=== PATIENT | male | born 1990 | race Two or more races ===

== ENCOUNTER 2020-07-06 16:46 | Outpatient (REF) | payer OTHER, SELFPAY | END 2020-07-06 16:47 | disposition home or self-care (01) | LOC: HO.LAB 16:46 | PROVIDERS: Visit Provider Internal Medicine | DX: Z20.828 Contact with and (suspected) exposure to other viral communicable diseases (principal) | CPT/HCPCS: C9803; U0003 ==

== ENCOUNTER 2020-10-18 13:00 | Outpatient (REF) | payer OTHER, SELFPAY ==
[2020-10-18 13:48] LABS: COVID-19 Test Negative (Negative)
== END 2020-10-18 13:01 | disposition home or self-care (01) ==
LOC: HO.LAB 13:00
PROVIDERS: Visit Provider Internal Medicine
DX: Z20.822 Contact with and (suspected) exposure to COVID-19 (principal)
CPT/HCPCS: 36415; 87635; C9803

== ENCOUNTER 2021-10-24 13:05 | Outpatient (REF) | payer OTHER, SELFPAY ==
[2021-10-24 13:41] LABS: MANUAL DIFF FLAG NO
[2021-10-24 14:08] LABS: Prothrombin Time 11.5 SEC (9.9-13.0)
[2021-10-24 14:09] LABS: Basophils Absolute Auto 0.1 X10*3/uL (0.0-0.2); Basophils Percent Auto 0.7 % (0-2); Eosinophils Absolute Auto 0.3 X10*3/uL (0.0-0.4); Eosinophils Percent Auto 4.1 % (0-4); Hematocrit 44.4 % (42.0-52.0); Hemoglobin 15.3 g/dl (14.0-18.0); Imm Gran Abs Auto 0.04 X10*3/uL (0.00-0.03); Imm Gran Pct Auto 0.6 % (0.0-0.4); Lymphocytes Absolute Auto 2.2 X10*3/uL (1.2-4.9); Mean Corpuscular HGB Conc 34.5 g/dl (31.0-36.0); Mean Corpuscular Hemoglobin 29.8 pg (27.0-33.0); Mean Corpuscular Volume 86.4 fL (80.0-98.0); Mean Platelet Volume 10.8 fL (9.4-12.4); Monocytes Absolute Auto 0.6 X10*3/uL (0.1-1.2); Monocytes Percent Auto 8.7 % (2-11); Neutrophils Absolute Auto 3.8 x10*3/uL (2.0-8.3); Neutrophils Percent Auto 53.9 % (45-73); Platelet Count 298 X10*3/uL (160-400); Red Blood Count 5.14 X10*6/uL (4.60-5.80); Red Cell Distribution Width 12.7 % (11.0-16.0)
[2021-10-24 14:32] LABS: Alanine Aminotransferase 35 U/L (0-40); Albumin Level 4.5 g/dL (3.5-5.0); Alkaline Phosphatase 61 U/L (39-117); Anion Gap 10 (12-20); Aspartate Amino Transferase 26 U/L (5-37); Bilirubin Direct 0.2 mg/dL (0.0-0.5); Bilirubin Total 0.5 mg/dL (0.0-1.0); Blood Urea Nitrogen 12 mg/dL (9-16); Calcium 9.9 mg/dL (8.4-10.2); Carbon Dioxide 27 mmol/L (22-29); Chloride 105 mmol/L (96-108); Estimated Glomerular Filt Rate > 60; Glucose Random 80 mg/dL (60-115); Potassium 4.4 mmol/L (3.3-5.1); Sodium 138 mmol/L (135-145); Total Protein 8.2 g/dL (6.5-8.0)
[2021-10-24 14:51] LABS: Syphilis Screen Nonreactive (Nonreactive); Vitamin D 25-OH Total 14.2 ng/mL (>30)
[2021-10-24 15:25] LABS: Erythrocyte Sedimentation Rate 6 MM/HR (0-15)
[2021-10-25 08:34] LABS: HIV AB/AG Nonreactive (Nonreactive); HIV Num 1 0.07 S/CO (0.00-0.99)
[2021-10-26 05:07] LABS: Lyme Abs Screen <0.90 index
[2021-10-27 14:42] LABS: IgA 320 mg/dL (47-310); IgG 1533 mg/dL (600-1640); IgM 63 mg/dL (50-300)
== END 2021-10-24 13:06 | disposition home or self-care (01) ==
LOC: HO.LAB 13:05
PROVIDERS: PCP Internal Medicine; Visit Provider Psychiatry & Neurology Neurology
DX: Z11.4 Encounter for screening for human immunodeficiency virus [HIV] (principal); G37.9 Demyelinating disease of central nervous system, unspecified
CPT/HCPCS: 80048; 80076; 82306; 82784; 85025; 85610; 85652; 86334; 86617; 86618; 86780; 87389

== ENCOUNTER 2021-12-05 12:46 | Outpatient (REF) | payer OTHER, SELFPAY ==
--- NOTE | ~2021-12-05 | MR_ITS ---
EXAMINATION: MR CERVICAL SPINE WITHOUT AND WITH CONTRAST MR THORACIC SPINE WITHOUT AND WITH CONTRAST CLINICAL INFORMATION: Left leg pain. Cramps from hip to toes. COMPARISON: Brain MRI report dated 06/25/2021. TECHNIQUE: Multiplanar, multisequential imaging of the cervical and thoracic spine was performed before and after the intravenous administration of 10 mL of Gadavist. Slightly limited study with motion artifacts. FINDINGS: CERVICAL SPINE: Vertebral Bodies And Paraspinal Soft Tissues: The marrow signal is homogeneous and the discs are fairly well-hydrated. There is a mild reversal of the normal cervical lordosis. No abnormal enhancement is seen. The paraspinal soft tissues appear normal. The vertebral artery flow-voids are maintained. The imaged lung apices are grossly clear. Cervicomedullary Junction And Visualized Posterior Fossa: The craniovertebral junction and imaged portions of the brain demonstrate no acute abnormality. There is a small 4 mm focus of T2 hyperintense signal change in the left lateral aspect of the cord at the C5 level without enhancement, only visible on series 6, image 7/14 of the STIR acquisition. Spinal Levels: There is no significant disc pathology, central canal stenosis, or foraminal narrowing. No focal disc protrusion is seen. The facet joints are normal. THORACIC SPINE: The marrow signal is within normal limits. There are no compression fractures or subluxations. No abnormal enhancement is visible on postcontrast imaging. No cord signal abnormality or syrinx is seen. There is a very small right paracentral disc protrusion at the T2-T3 level. Small disc protrusion also visible to the right of midline at the T3-T4 level. There is a very small left paracentral disc protrusion at the T6-T7 level. Moderate loss of disc height evident at the T9-T10 level. The central canal and neural foramina are otherwise patent. The imaged portions of the lungs are grossly clear. The paraspinal soft tissues are unremarkable. MR/MR cervical spine wo/w con IMPRESSION: CERVICAL SPINE: Subcentimeter focus of nonenhancing signal in the left lateral aspect of the cord at the C5 level which is nonspecific but may reflect a small demyelinating lesion. Mild reversal of the normal cervical lordosis. Otherwise, relatively normal imaging of the cervical spine. THORACIC SPINE: No cord signal abnormality or pathologic enhancement. Small disc protrusions at the T2-T3, T3-T4, and T6-T7 levels. Moderate disc space narrowing at the T9-T10 level.
== END 2021-12-05 12:47 | disposition home or self-care (01) ==
LOC: HO.MRI 12:46
PROVIDERS: Visit Provider Psychiatry & Neurology Neurology
DX: G37.9 Demyelinating disease of central nervous system, unspecified (principal); G36.0 Neuromyelitis optica [Devic]
CPT/HCPCS: 72156; 72157; A9585

== ENCOUNTER 2021-12-25 09:01 | Outpatient (REF) | payer OTHER, SELFPAY | END 2021-12-25 09:02 | disposition home or self-care (01) | LOC: HO.MDS 09:01 | PROVIDERS: Visit Provider Psychiatry & Neurology Neurology | DX: G37.9 Demyelinating disease of central nervous system, unspecified (principal); G35 Multiple sclerosis | CPT/HCPCS: 96365; J2930 ==

== ENCOUNTER 2021-12-26 12:54 | Outpatient (REF) | payer OTHER, SELFPAY | END 2021-12-26 12:55 | disposition home or self-care (01) | LOC: HO.MDS 12:54 | PROVIDERS: Visit Provider Psychiatry & Neurology Neurology | DX: G37.9 Demyelinating disease of central nervous system, unspecified (principal); G35 Multiple sclerosis | CPT/HCPCS: 96365 ==

== ENCOUNTER 2021-12-27 13:06 | Outpatient (REF) | payer OTHER, SELFPAY | END 2021-12-27 13:07 | disposition home or self-care (01) | LOC: HO.MDS 13:06 | PROVIDERS: Visit Provider Psychiatry & Neurology Neurology | DX: G37.9 Demyelinating disease of central nervous system, unspecified (principal); G35 Multiple sclerosis | CPT/HCPCS: 96365; J2930 ==

== ENCOUNTER 2022-03-12 09:51 | Day surgery (SDC) | payer OTHER, SELFPAY ==
--- NOTE | ~2022-03-12 | FL_ITS ---
EXAMINATION: XR LUMBAR PUNCTURE CLINICAL INFORMATION: Demyelinating disease of the brain. Left leg pain COMPARISON: None TECHNIQUE: Following explanation of the fluoroscopy-guided lumbar puncture procedure, benefits and risks, a written consent was obtained. Patient was placed prone on the fluoroscopy table and the low back area was cleaned and draped in usual sterile manner and 1% lidocaine was injected at the puncture site overlying the L4-L5 disc level. A 22-gauge spinal needle was advanced from the skin intrathecally at the L4-L5 disc level. Patient was placed in left lateral decubitus, a stylet was removed and opening pressure was obtained. Subsequently CSF was collected in 4 test tubes. Postprocedure, a stylet was reintroduced and needle withdrawn. Complete hemostasis achieved at the puncture site. Patient tolerated the procedure extremely well. FINDINGS: On several images obtained of lumbar spine there is maintained lumbar lordosis. The vertebral heights, alignment and disc heights are normal. No visible acute fracture, dislocation or subluxation seen. Opening CSF pressure measured 14 cm of water. Approximately 9.5 mL of clear CSF fluid was collected in 4 test tubes and sent to lab as per referring physician's orders. FLUOROSCOPY TIME: 0.7 minutes DOSE AREA PRODUCT: 11.218 uGy-m2 (microgray-meter squared) FL/FL guided lumbar puncture LP IMPRESSION: Successful fluoroscopy-guided lumbar puncture performed as described above without immediate complications.
[2022-03-12 10:16] LABS: MANUAL DIFF FLAG NO
[2022-03-12 10:18] LABS: Basophils Percent Auto 0.5 % (0-2); Eosinophils Absolute Auto 0.3 X10*3/uL (0.0-0.4); Eosinophils Percent Auto 3.9 % (0-4); Hematocrit 44.7 % (42.0-52.0); Hemoglobin 14.9 g/dl (14.0-18.0); Imm Gran Abs Auto 0.06 X10*3/uL (0.00-0.03); Imm Gran Pct Auto 0.8 % (0.0-0.4); Lymphocytes Absolute Auto 2.2 X10*3/uL (1.2-4.9); Lymphocytes Percent Auto 29.1 % (20-40); Mean Corpuscular HGB Conc 33.3 g/dl (31.0-36.0); Mean Corpuscular Hemoglobin 29.2 pg (27.0-33.0); Mean Corpuscular Volume 87.6 fL (80.0-98.0); Mean Platelet Volume 10.3 fL (9.4-12.4); Monocytes Absolute Auto 0.6 X10*3/uL (0.1-1.2); Monocytes Percent Auto 7.6 % (2-11); Neutrophils Absolute Auto 4.5 x10*3/uL (2.0-8.3); Neutrophils Percent Auto 58.1 % (45-73); Platelet Count 276 X10*3/uL (160-400); Red Cell Distribution Width 13.1 % (11.0-16.0); White Blood Count 7.7 X10*3/uL (4.8-10.8)
[2022-03-12 10:23] VITALS: BMI 30.2
[2022-03-12 10:32] LABS: Partial Thromboplastin Time 35.3 SEC (26.0-36.4)
[2022-03-12 12:00] VITALS: BP 117/62; PULSE 56; RESP 16; TEMP 36.6; O2SAT 96
[2022-03-12 12:30] VITALS: BP 118/68; PULSE 59; RESP 18; O2SAT 97
[2022-03-12 12:44] LABS: CSF Appearance Clear, Colorless; CSF Tube # 1
[2022-03-12 12:54] LABS: Glucose CSF 60 mg/dL; Total Protein CSF 31.6 mg/dL (15-45)
[2022-03-12 13:00] VITALS: BP 128/53; PULSE 61; RESP 18; O2SAT 97
[2022-03-12 13:11] LABS: Appearance CSF CLEAR; CSF Tube # 4; Color CSF COLORLESS; Red Blood Cell CSF 18 MM*3; White Blood Cell CSF 4 MM*3
[2022-03-12 13:24] LABS: CSF Monos 10 %; Lymphocytes CSF 90 %
[2022-03-12 13:30] VITALS: BP 117/57; PULSE 74; RESP 18; O2SAT 98
[2022-03-12 14:30] VITALS: BP 122/56; PULSE 84; RESP 18; TEMP 36.8; O2SAT 98
[2022-03-13 06:40] LABS: Oligoclonal Serum Yes
[2022-03-16 11:07] LABS: Albumin 4.6 g/dL (3.5-5.2); Albumin, CSF 20.2 mg/dL (8.0-42.0); IgG 1520 mg/dL (600-1640); IgG Synthesis Rate -2.2 mg/24 h (-9.9-3.3); IgG, CSF 3.7 mg/dL (0.8-7.7)
== END 2022-03-12 14:42 | disposition home or self-care (01) ==
PROVIDERS: Radiology Diagnostic Radiology; PCP Internal Medicine; Visit Provider Psychiatry & Neurology Neurology
PROC: 009U3ZZ Drainage of Spinal Canal, Percutaneous Approach (ICD-10-PCS; CPT 62270; principal; 2022-03-12 11:00)
DX: G37.9 Demyelinating disease of central nervous system, unspecified (principal); M79.605 Pain in left leg; G36.0 Neuromyelitis optica [Devic]; G40.909 Epilepsy, unspecified, not intractable, without status epilepticus; F91.9 Conduct disorder, unspecified; F90.9 Attention-deficit hyperactivity disorder, unspecified type; F31.9 Bipolar disorder, unspecified; F41.9 Anxiety disorder, unspecified; F14.10 Cocaine abuse, uncomplicated; F10.10 Alcohol abuse, uncomplicated; Z79.899 Other long term (current) drug therapy
CPT/HCPCS: 36415; 62328; 82042; 82945; 83916; 84157; 85025; 85610; 85730; 87015; 87070; 87205; 89051

== ENCOUNTER 2022-05-12 22:38 | Emergency (ER) | payer OTHER, SELFPAY ==
[2022-05-12 22:41] VITALS: BP 142/93; PULSE 86; RESP 22; TEMP 36.9; O2SAT 97; BMI 30.2
[2022-05-12 23:00] VITALS: BP 168/94; PULSE 99; RESP 13; TEMP 36.9; O2SAT 97
[2022-05-12] MEDS: diphenhydrAMINE HCL 50 MG/ML VIAL IVPUSH (23:23)
--- NOTE | 2022-05-12 23:24 | ED_ITS ---
HPI - General Adult General Chief complaint: Allergic Reaction Stated complaint: swollen tongue, allergic reaction Time Seen by Provider: 05/12/22 23:03 Source: patient Mode of arrival: ambulatory History of Present Illness HPI narrative: 31-year-old male arrives with complaints abnormal tongue movement and ?swelling? but denies any difficulty with swallowing or breathing, denies any rashes but states he is having some tremors. He was recently seen at [facility] after falling while intoxicated and received Haldol because he was also noted to be agitated and needed to undergo CT scanning. Related Data Previous Rx's Medication Instructions Recorded cephalexin 250 mg capsule 250 mg PO Q6H #20 caps 02/27/22 Allergies Allergy/AdvReac Type Severity Reaction Status Date / Time shellfish derived Allergy Severe Hives Verified 03/12/22 10:23 haloperidol [From Haldol] AdvReac Anaphylaxis Verified 05/12/22 22:48 Review of Systems Review of Systems: Pertinent positives and negatives as stated in HPI 10 point review of systems is otherwise negative. [facility] Past Medical History Source: nursing notes reviewed Medical History ADHD (attention deficit hyperactivity disorder) Gout attack Hyperesthesia Numbness of left lower extremity Obesity (BMI 30-39.9) Surgical History History of hand surgery Family History Family History Father No problems noted. Mother No problems noted. Social History Social History Housing: Apartment Alcohol intake: former Patient Tobacco Use Status: Never used Tobacco e-Cigarette/Vaping Use: Never Used Second Hand Smoke Exposure: No Advance Directives: No Advance Directives Information Provided: Yes service: No Current occupational status: employed Current occupation: Security Cognitive needs: No Hearing needs: No Vision needs: No Physical Exam ED Vital Signs: Vital Signs - 24 hr 05/12/22 22:41 05/12/22 23:00 Temperature 98.4 F 98.4 F Pulse Rate 86 99 Respiratory Rate 22 H 13 Blood Pressure 142/93 H 168/94 H Pulse Oximetry 97 97 Oxygen Delivery Method Room Air Room Air BMI result Body Mass Index 30.2 VITAL SIGNS: Reviewed. GENERAL: Well developed, well nourished, in no acute distress. HEAD: Normocephalic/atraumatic EYES: PERRLA, EOMI EARS: Ext canals without abnormality OROPHARYNX: no oral lesions noted, posterior pharynx clear tongue noted to be purplish and protruding from the mouth NECK: Supple, no adenopathy LUNGS: Normal breath sounds, no stridor/wheeze/rhonchi/rales. SpO2<97> CARDIOVASCULAR: Regular rate and rhythm without noted murmurs ABDOMEN: Soft, non-tender, non-distended with bowel sounds. MUSCULOSKELETAL: No tenderness, deformities, or effusions noted on gross inspection. EXTREMITIES: No cyanosis, clubbing or edema. SKIN: Inspection of the skin reveals no rashes, diaphoresis noted NEUROLOGIC: Alert and oriented x 4. Strength and sensation to light touch were grossly intact x 4, patient with significant dyskinesia. Course Course Course Narrative: 31-year-old male with history and clinical presentation consistent with adverse side effects associated with Haldol and low clinical suspicion for angioedema. Emergent IV line was placed with administration of 50 mg of Benadryl and immediate resolution of clinical symptoms. Patient is now comfortable and I reviewed all charts from [facility], patient was CT scanned while there with negative head CT/negative cervical spine CT and there are no neuro deficits at this time. He is otherwise discharged home in stable condition. Discharge Plan Discharge Clinical Impression: Haldol-induced dystonia Patient Disposition: Home, Self-Care Additional Instructions: The next time that you receive the Haldol if you have symptoms like this you can take oral Benadryl. Prescriptions: No Action cephalexin 250 mg capsule 250 mg PO Q6H Qty: 20 0RF Referrals: Vinh Durand MD [Primary Care Provider] -
== END 2022-05-13 02:24 | disposition home or self-care (01) ==
PROVIDERS: Emergency Provider Student in an Organized Health Care Education/Training Program; PCP Internal Medicine
DX: G24.9 Dystonia, unspecified (principal); Z79.899 Other long term (current) drug therapy
CPT/HCPCS: 96374; 99283; 99284; J1200

== ENCOUNTER 2022-05-24 11:28 | Outpatient (REF) | payer OTHER, SELFPAY ==
--- NOTE | ~2022-05-24 | XR_ITS ---
EXAMINATION: XR knee LT 2V CLINICAL INFORMATION: Pain COMPARISON: Knee radiographs 10/05/2015 TECHNIQUE: 2 views of the knee FINDINGS: No acute fracture or dislocation. Joint spaces are maintained. Trace suprapatellar joint effusion. Soft tissues are unremarkable. XR/XR knee LT 2V IMPRESSION: * Trace joint effusion.
--- NOTE | ~2022-05-24 | XR_ITS ---
EXAMINATION: XR elbow LT 2V CLINICAL INFORMATION: Pain COMPARISON: None TECHNIQUE: 4 views of the elbow XR/XR elbow LT 2V FINDINGS/IMPRESSION: No acute fracture or dislocation. Joint spaces are maintained. No joint effusion. Soft tissues are unremarkable. IMPRESSION: * No acute osseous abnormality.
== END 2022-05-24 11:29 | disposition home or self-care (01) ==
LOC: HO.XRAY 11:28
PROVIDERS: PCP Internal Medicine; Visit Provider Internal Medicine
DX: M25.522 Pain in left elbow (principal); M25.562 Pain in left knee
CPT/HCPCS: 73070; 73560

== ENCOUNTER → 2022-07-12 13:43 | Outpatient (REF) | payer OTHER, SELFPAY ==
--- NOTE | 2022-07-12 13:46 | ECG_ITS ---
Test Reason : CP Blood Pressure : / mmHG Vent. Rate : 058 BPM Atrial Rate : 058 BPM P-R Int : 162 ms QRS Dur : 096 ms QT Int : 376 ms P-R-T Axes : 042 004 026 degrees QTc Int : 369 ms Sinus bradycardia Otherwise normal ECG When compared with ECG of 17-AUG-2011 13:58, No significant change was found Referred By: Vinh Durand Electronically Signed By:PRIYANK AIKEN
== END ==
LOC: HO.CARD 13:43
PROVIDERS: PCP Internal Medicine; Visit Provider Internal Medicine
DX: R07.9 Chest pain, unspecified (principal)
CPT/HCPCS: 93005

== ENCOUNTER 2022-07-17 20:17 | Emergency (ER) | payer OTHER, SELFPAY ==
--- NOTE | ~2022-07-17 | XR_ITS ---
EXAMINATION: XR CHEST CLINICAL INFORMATION: Left-sided chest COMPARISON: 11/12/2017 TECHNIQUE: 2 views of the chest were obtained. FINDINGS: No significant abnormality is noted involving the heart, lungs, mediastinum, bony thorax or soft tissues. XR/XR chest 2V IMPRESSION: Unremarkable examination.
[2022-07-17 20:31] VITALS: BP 126/83; PULSE 77; RESP 18; TEMP 36.6; O2SAT 97; BMI 28.8
--- NOTE | 2022-07-17 20:34 | ECG_ITS ---
Test Reason : chest pain Blood Pressure : / mmHG Vent. Rate : 080 BPM Atrial Rate : 080 BPM P-R Int : 158 ms QRS Dur : 094 ms QT Int : 346 ms P-R-T Axes : 043 001 018 degrees QTc Int : 399 ms Normal sinus rhythm Normal ECG When compared with ECG of 12-JUL-2022 13:59, No significant change was found Referred By: Rupinder Mims Electronically Signed By:Markie Morales
--- NOTE | 2022-07-17 20:35 | ED.CHESTPAIN ---
HPI - Chest Pain General Chief Complaint: Chest Pain <EZEQUIEL Deras - Last Filed: 07/17/22 20:38> Stated Complaint: chest pain <EZEQUIEL Deras - Last Filed: 07/17/22 20:38> Time Seen by Provider: 07/17/22 21:01 <EZEQUIEL Deras - Last Filed: 07/17/22 20:38> Source: patient <Salma Jo MD - Last Filed: 07/17/22 22:41> Mode of arrival: ambulatory <Salma Jo MD - Last Filed: 07/17/22 22:41> Limitations: no limitations <Salma Jo MD - Last Filed: 07/17/22 22:41> History of Present Illness HPI narrative: Patient comes to emergency room complaining of an episode of sharp substernal chest pain that lasted 2nd, which occurred approximately 7 hours ago. Patient states that he was at work, from that he went to [facility], labs were drawn, but left before being seen because the waiting time was too long. At this time, patient does not have any chest pain or shortness of breath, no palpitations. <Salma Jo MD - Last Filed: 07/17/22 22:41> Related Data Home Medications: Home Medications Medication Instructions Recorded Confirmed methylphenidate HCl 36 mg 36 mg PO DAILY 05/24/22 07/12/22 tablet,extended release 24 hr (Concerta) sildenafil 50 mg tablet 50 mg PO 05/24/22 07/12/22 methylphenidate HCl 10 mg tablet 10 mg PO DAILY 06/28/22 07/12/22 Previous Rx's Medication Instructions Recorded naproxen 500 mg tablet (Naprosyn) 500 mg PO BID PRN pain #60 tabs 05/24/22 triamcinolone acetonide 0.5 % 1 appl topical TID #15 grams 06/28/22 topical cream <EZEQUIEL Deras - Last Filed: 07/17/22 20:38> Allergies/Adverse Reactions: Allergies Allergy/AdvReac Type Severity Reaction Status Date / Time shellfish derived Allergy Severe Hives Verified 07/17/22 20:37 haloperidol [From Haldol] AdvReac Anaphylaxis Verified 07/17/22 20:37 <EZEQUIEL Deras - Last Filed: 07/17/22 20:38> Review of Systems Review of Systems: Constitutional : No Weight loss, No Fever, No Chills, No Night Sweats, No Fatigue, No Malaise ENT/Mouth : No Hearing loss, No Ear Pain, No Nasal Congestion, No Sinus Pain, No Hoarseness, No sore throat, No Rhinorrhea, No Swallowing Difficulty Eyes: No Eye Pain, No Swelling, No Redness, No Foreign Body, No Discharge, No Vision Changes Cardiovascular : Sharp chest pain that lasted 2nd which occurred 7 hours ago, No SOB, No Dyspnea on Exertion, No Orthopnea, No Edema, No Palpitations Respiratory : No Cough, No Sputum, No Wheezing, No Smoke Exposure, No Dyspnea Gastrointestinal : No Nausea, No Vomiting, No Diarrhea, No Constipation, No abdominal Pain, No Hematochezia, No Melena Genitourinary : no irregular bleeding, No Dysuria, No Urinary Frequency, No Hematuria, No Urinary Incontinence, No Urgency, No Flank Pain, No Urinary Flow Changes, No Hesitancy Musculoskeletal : No joint pain, No Myalgias, No Joint Swelling Skin : No Skin Lesions, No rash Neuro : No Weakness, No Numbness, No Paresthesias, No Loss of Consciousness, No Dizziness, No Headache Psych : No Anxiety/Panic, No Depression, No SI/HI/AH/VH, No Social Issues, Heme/Lymph: No Bruising, No Bleeding,No Lymphadenopathy Endocrine : No Polyuria, No Polydipsia, No Temperature Intolerance <Salma Jo MD - Last Filed: 07/17/22 22:41> [facility] Past Medical History Medical History: Medical History ADHD (attention deficit hyperactivity disorder) Gout attack Hyperesthesia Numbness of left lower extremity Obesity (BMI 30-39.9) <EZEQUIEL Deras - Last Filed: 07/17/22 20:38> Surgical History: Surgical History History of hand surgery <EZEQUIEL Deras - Last Filed: 07/17/22 20:38> Family History Family History: Family History Father No problems noted. Mother No problems noted. <EZEQUIEL Deras - Last Filed: 07/17/22 20:38> Social History Social History: Social History Housing: Apartment Alcohol intake: former Patient Tobacco Use Status: Current everyday Tobacco user Cigarettes Per Day: 3 e-Cigarette/Vaping Use: Never Used Second Hand Smoke Exposure: No Advance Directives: No Advance Directives Information Provided: No service: No Current occupational status: employed Current occupation: Security Cognitive needs: No Hearing needs: No Vision needs: No <EZEQUIEL Deras - Last Filed: 07/17/22 20:38> Physical Exam Vital Signs: Vital Signs: Last Vital Signs Temp 97.9 F 07/17/22 20:31 Pulse 77 07/17/22 20:31 Resp 18 07/17/22 20:31 BP 126/83 07/17/22 20:31 Pulse Ox 97 07/17/22 20:31 O2 Del Method 07/17/22 20:31 BMI result Body Mass Index 28.8 <EZEQUIEL Deras - Last Filed: 07/17/22 20:38> Vital Signs: Last Vital Signs Temp 97.9 F 07/17/22 20:31 Pulse 77 07/17/22 20:31 Resp 18 07/17/22 20:31 BP 126/83 07/17/22 20:31 Pulse Ox 97 07/17/22 20:31 O2 Del Method 07/17/22 20:31 BMI result Body Mass Index 28.8 <Salma Jo MD - Last Filed: 07/17/22 22:41> Const: Other: Appearance: Alert. Oriented X3. No acute distress. Eyes: Pupils equal, round and reactive to light. ENT: Pharynx normal. Neck: Normal inspection. Neck supple. No lymph nodes noted. No crepitus CVS: Normal heart rate and rhythm. Pulses normal. Normal S1 and S2 Respiratory: No respiratory distress. Breath sounds normal. No Wheezing. No rales Abdomen: Soft and nontender. No rigidity. No distention. Skin: Skin warm and dry. Normal skin color. Normal skin turgor. Extremities: No lower extremity edema. No Lacerations. No Rash Neuro: Oriented X 3. No motor deficit. No sensory deficit. Moving all extremities. No slurred speech. CN 2 through 12 grossly intact Psych: calm, cooperative, normal affect <Salma Jo MD - Last Filed: 07/17/22 22:41> Course Course Course Narrative: RME - 31 yo male who quit smoking 2 weeks ago, ADHD (recently stopped Concerta due to chest pain and SOB) who presents to the ER for evaluation of intermittent sharp, left sided pleuritic chest pains that started at work earlier today. Now resolved. Worse with deep breathing. Has been coughing and clearing his lungs more since stopping smoking. At [facility] today where he had a reportedly normal EKG and CXR. Left due to long wait times. VSS on arrival. Will get labs, CXR, EKG and swabs. <EZEQUIEL Deras - Last Filed: 07/17/22 20:38> RME - 31 yo male who quit smoking 2 weeks ago, ADHD (recently stopped Concerta due to chest pain and SOB) who presents to the ER for evaluation of intermittent sharp, left sided pleuritic chest pains that started at work earlier today. Now resolved. Worse with deep breathing. Has been coughing and clearing his lungs more since stopping smoking. At [facility] today where he had a reportedly normal EKG and CXR. Left due to long wait times. VSS on arrival. Will get labs, CXR, EKG and swabs. In the emergency room patient was given 1 dose of aspirin 325 mg. <Salma Jo MD - Last Filed: 07/17/22 22:41> Medications Administered Discontinued Medications Generic Name Dose Route Start Last Admin Trade Name Freq PRN Reason Stop Dose Admin Aspirin 325 mg 07/17/22 21:13 07/17/22 21:43 Aspirin Enteric Coated 325 Mg Tablet.Dr JIM 07/17/22 21:14 325 mg ONCE ONE Administration <EZEQUIEL Deras - Last Filed: 07/17/22 20:38> Medications Administered Discontinued Medications Generic Name Dose Route Start Last Admin Trade Name Freq PRN Reason Stop Dose Admin Aspirin 325 mg 07/17/22 21:13 07/17/22 21:43 Aspirin Enteric Coated 325 Mg Tablet.Dr JIM 07/17/22 21:14 325 mg ONCE ONE Administration <Salma Jo MD - Last Filed: 07/17/22 22:41> Medical Decision Making Medical Decision Making MDM Narrative: Patient is asymptomatic. Unlikely to be chest pain from cardiac etiology. Possible anxiety EKG and troponin negative after 7 hours of onset of symptoms <Salma Jo MD - Last Filed: 07/17/22 22:41> Differential Diagnosis Differential Diagnoses: The differential diagnosis associated with the presentation includes (Anxiety, pleurisy, ACS, costochondritis) <Salma Jo MD - Last Filed: 07/17/22 22:41> Lab Data [facility] Lab Attestation statement: I reviewed the patient's lab results. <Salma Jo MD - Last Filed: 07/17/22 22:41> Result Diagrams: 07/17/22 21:01 07/17/22 21:01 <EZEQUIEL Deras - Last Filed: 07/17/22 20:38> Labs: Lab Results 07/17/22 07/17/22 07/17/22 Range/Units 21:01 21:01 21:01 WBC 9.4 (4.8-10.8) X10*3/uL RBC 4.92 (4.60-5.80) X10*6/uL Hgb 14.4 (14.0-18.0) g/dl Hct 42.7 (42.0-52.0) % MCV 86.8 (80.0-98.0) fL MCH 29.3 (27.0-33.0) pg MCHC 33.7 (31.0-36.0) g/dl RDW 12.4 (11.0-16.0) % Plt Count 313 (160-400) X10*3/uL MPV 10.4 (9.4-12.4) fL Immature Gran % (Auto) 0.6 H (0.0-0.4) % Neut % (Auto) 60.5 (45-73) % Lymph % (Auto) 28.8 (20-40) % Loving % (Auto) 6.9 (2-11) % Eos % (Auto) 2.7 (0-4) % Baso % (Auto) 0.5 (0-2) % Lymph # (Auto) 2.7 (1.2-4.9) X10*3/uL Loving # (Auto) 0.7 (0.1-1.2) X10*3/uL Eos # (Auto) 0.3 (0.0-0.4) X10*3/uL Baso # (Auto) 0.1 (0.0-0.2) X10*3/uL Abs Immat Gran (auto) 0.06 H (0.00-0.03) X10*3/uL Absolute Neuts (auto) 5.7 (2.0-8.3) x10*3/uL Absolute Nucleated RBC 0.000 (0.0-0.012) X10*3/uL Nucleated RBC % (auto) 0.0 (0.0-0.2) /100WBC Sodium 140 (135-145) mmol/L Potassium 3.8 (3.3-5.1) mmol/L Chloride 105 (96-108) mmol/L Carbon Dioxide 27 (22-29) mmol/L Anion Gap 12 (12-20) BUN 11 (9-16) mg/dL Creatinine 0.85 (0.5-1.4) mg/dL Estim Creat Clear Calc 162.0 Estimated GFR > 60 Random Glucose 115 (60-115) mg/dL Calcium 9.4 (8.4-10.2) mg/dL Magnesium 1.9 (1.6-2.6) mg/dL Total Bilirubin 0.3 (0.0-1.0) mg/dL Direct Bilirubin < 0.2 (0.0-0.5) mg/dL AST 17 (5-37) U/L ALT 26 (0-40) U/L Alkaline Phosphatase 65 (39-117) U/L Troponin I High Sens < 3.5 (<3.5-35.0) ng/L Total Protein 8.0 (6.5-8.0) g/dL Albumin 4.5 (3.5-5.0) g/dL COVID-19 (ALEXANDRA) (Negative) COVID-19 Clin Com Influenza Type A (ABIODUN) (Negative) Influenza Type B (ABIODUN) (Negative) Influenza A & B Note 07/17/22 07/17/22 Range/Units 21:01 21:02 WBC (4.8-10.8) X10*3/uL RBC (4.60-5.80) X10*6/uL Hgb (14.0-18.0) g/dl Hct (42.0-52.0) % MCV (80.0-98.0) fL MCH (27.0-33.0) pg MCHC (31.0-36.0) g/dl RDW (11.0-16.0) % Plt Count (160-400) X10*3/uL MPV (9.4-12.4) fL Immature Gran % (Auto) (0.0-0.4) % Neut % (Auto) (45-73) % Lymph % (Auto) (20-40) % Loving % (Auto) (2-11) % Eos % (Auto) (0-4) % Baso % (Auto) (0-2) % Lymph # (Auto) (1.2-4.9) X10*3/uL Loving # (Auto) (0.1-1.2) X10*3/uL Eos # (Auto) (0.0-0.4) X10*3/uL Baso # (Auto) (0.0-0.2) X10*3/uL Abs Immat Gran (auto) (0.00-0.03) X10*3/uL Absolute Neuts (auto) (2.0-8.3) x10*3/uL Absolute Nucleated RBC (0.0-0.012) X10*3/uL Nucleated RBC % (auto) (0.0-0.2) /100WBC Sodium (135-145) mmol/L Potassium (3.3-5.1) mmol/L Chloride (96-108) mmol/L Carbon Dioxide (22-29) mmol/L Anion Gap (12-20) BUN (9-16) mg/dL Creatinine (0.5-1.4) mg/dL Estim Creat Clear Calc Estimated GFR Random Glucose (60-115) mg/dL Calcium (8.4-10.2) mg/dL Magnesium (1.6-2.6) mg/dL Total Bilirubin (0.0-1.0) mg/dL Direct Bilirubin (0.0-0.5) mg/dL AST (5-37) U/L ALT (0-40) U/L Alkaline Phosphatase (39-117) U/L Troponin I High Sens (<3.5-35.0) ng/L Total Protein (6.5-8.0) g/dL Albumin (3.5-5.0) g/dL COVID-19 (ALEXANDRA) Negative (Negative) COVID-19 Clin Com See Note Influenza Type A (ABIODUN) Negative (Negative) Influenza Type B (ABIODUN) Negative (Negative) Influenza A & B Note See Note <EZEQUIEL Deras - Last Filed: 07/17/22 20:38> Lab Results 07/17/22 07/17/22 07/17/22 Range/Units 21:01 21:01 21:01 WBC 9.4 (4.8-10.8) X10*3/uL RBC 4.92 (4.60-5.80) X10*6/uL Hgb 14.4 (14.0-18.0) g/dl Hct 42.7 (42.0-52.0) % MCV 86.8 (80.0-98.0) fL MCH 29.3 (27.0-33.0) pg MCHC 33.7 (31.0-36.0) g/dl RDW 12.4 (11.0-16.0) % Plt Count 313 (160-400) X10*3/uL MPV 10.4 (9.4-12.4) fL Immature Gran % (Auto) 0.6 H (0.0-0.4) % Neut % (Auto) 60.5 (45-73) % Lymph % (Auto) 28.8 (20-40) % Loving % (Auto) 6.9 (2-11) % Eos % (Auto) 2.7 (0-4) % Baso % (Auto) 0.5 (0-2) % Lymph # (Auto) 2.7 (1.2-4.9) X10*3/uL Loving # (Auto) 0.7 (0.1-1.2) X10*3/uL Eos # (Auto) 0.3 (0.0-0.4) X10*3/uL Baso # (Auto) 0.1 (0.0-0.2) X10*3/uL Abs Immat Gran (auto) 0.06 H (0.00-0.03) X10*3/uL Absolute Neuts (auto) 5.7 (2.0-8.3) x10*3/uL Absolute Nucleated RBC 0.000 (0.0-0.012) X10*3/uL Nucleated RBC % (auto) 0.0 (0.0-0.2) /100WBC Sodium 140 (135-145) mmol/L Potassium 3.8 (3.3-5.1) mmol/L Chloride 105 (96-108) mmol/L Carbon Dioxide 27 (22-29) mmol/L Anion Gap 12 (12-20) BUN 11 (9-16) mg/dL Creatinine 0.85 (0.5-1.4) mg/dL Estim Creat Clear Calc 162.0 Estimated GFR > 60 Random Glucose 115 (60-115) mg/dL Calcium 9.4 (8.4-10.2) mg/dL Magnesium 1.9 (1.6-2.6) mg/dL Total Bilirubin 0.3 (0.0-1.0) mg/dL Direct Bilirubin < 0.2 (0.0-0.5) mg/dL AST 17 (5-37) U/L ALT 26 (0-40) U/L Alkaline Phosphatase 65 (39-117) U/L Troponin I High Sens < 3.5 (<3.5-35.0) ng/L Total Protein 8.0 (6.5-8.0) g/dL Albumin 4.5 (3.5-5.0) g/dL COVID-19 (ALEXANDRA) (Negative) COVID-19 Clin Com Influenza Type A (ABIODUN) (Negative) Influenza Type B (ABIODUN) (Negative) Influenza A & B Note 07/17/22 07/17/22 Range/Units 21:01 21:02 WBC (4.8-10.8) X10*3/uL RBC (4.60-5.80) X10*6/uL Hgb (14.0-18.0) g/dl Hct (42.0-52.0) % MCV (80.0-98.0) fL MCH (27.0-33.0) pg MCHC (31.0-36.0) g/dl RDW (11.0-16.0) % Plt Count (160-400) X10*3/uL MPV (9.4-12.4) fL Immature Gran % (Auto) (0.0-0.4) % Neut % (Auto) (45-73) % Lymph % (Auto) (20-40) % Loving % (Auto) (2-11) % Eos % (Auto) (0-4) % Baso % (Auto) (0-2) % Lymph # (Auto) (1.2-4.9) X10*3/uL Loving # (Auto) (0.1-1.2) X10*3/uL Eos # (Auto) (0.0-0.4) X10*3/uL Baso # (Auto) (0.0-0.2) X10*3/uL Abs Immat Gran (auto) (0.00-0.03) X10*3/uL Absolute Neuts (auto) (2.0-8.3) x10*3/uL Absolute Nucleated RBC (0.0-0.012) X10*3/uL Nucleated RBC % (auto) (0.0-0.2) /100WBC Sodium (135-145) mmol/L Potassium (3.3-5.1) mmol/L Chloride (96-108) mmol/L Carbon Dioxide (22-29) mmol/L Anion Gap (12-20) BUN (9-16) mg/dL Creatinine (0.5-1.4) mg/dL Estim Creat Clear Calc Estimated GFR Random Glucose (60-115) mg/dL Calcium (8.4-10.2) mg/dL Magnesium (1.6-2.6) mg/dL Total Bilirubin (0.0-1.0) mg/dL Direct Bilirubin (0.0-0.5) mg/dL AST (5-37) U/L ALT (0-40) U/L Alkaline Phosphatase (39-117) U/L Troponin I High Sens (<3.5-35.0) ng/L Total Protein (6.5-8.0) g/dL Albumin (3.5-5.0) g/dL COVID-19 (ALEXANDRA) Negative (Negative) COVID-19 Clin Com See Note Influenza Type A (ABIODUN) Negative (Negative) Influenza Type B (ABIODUN) Negative (Negative) Influenza A & B Note See Note <Salma Jo MD - Last Filed: 07/17/22 22:41> Independent Interpretation I performed an independent interpretation of an: EKG (My interpretation, normal sinus rhythm, heart rate 76, no ST segment depression or elevation, nonspecific T-wave inversion in lead 3, QTC 402) <Salma Jo MD - Last Filed: 07/17/22 22:41> Discharge Plan Discharge Clinical Impression: Atypical chest pain <EZEQUIEL Deras - Last Filed: 07/17/22 20:38> Patient Disposition: Home, Self-Care <EZEQUIEL Deras - Last Filed: 07/17/22 20:38> Instructions: Chest Pain (ED) <EZEQUIEL Deras - Last Filed: 07/17/22 20:38> Additional Instructions: Please follow-up with your primary care physician tomorrow. If you have any worsening or new symptoms, please return to the emergency room or call 911 <EZEQUIEL Deras - Last Filed: 07/17/22 20:38> Prescriptions: No Action methylphenidate HCl 10 mg tablet 10 mg PO DAILY triamcinolone acetonide 0.5 % cream 1 appl topical TID Qty: 15 3RF sildenafil 50 mg tablet 50 mg PO methylphenidate HCl [Concerta] 36 mg tablet extended release 24hr 36 mg PO DAILY naproxen [Naprosyn] 500 mg tablet 500 mg PO BID PRN (Reason: pain) Qty: 60 0RF <EZEQUIEL Deras - Last Filed: 07/17/22 20:38>
[2022-07-17 21:06] LABS: MANUAL DIFF FLAG NO
[2022-07-17 21:19] LABS: COVID-19 Test Negative (Negative); IDNOW Serial# 6674DD1D
[2022-07-17 21:21] LABS: Basophils Absolute Auto 0.1 X10*3/uL (0.0-0.2); Basophils Percent Auto 0.5 % (0-2); Eosinophils Absolute Auto 0.3 X10*3/uL (0.0-0.4); Eosinophils Percent Auto 2.7 % (0-4); Hematocrit 42.7 % (42.0-52.0); Hemoglobin 14.4 g/dl (14.0-18.0); IDNOW Serial# 55D5AD1C; Imm Gran Abs Auto 0.06 X10*3/uL (0.00-0.03); Imm Gran Pct Auto 0.6 % (0.0-0.4); Influenza A Negative (Negative); Influenza B2 Negative (Negative); Lymphocytes Absolute Auto 2.7 X10*3/uL (1.2-4.9); Lymphocytes Percent Auto 28.8 % (20-40); Mean Corpuscular HGB Conc 33.7 g/dl (31.0-36.0); Mean Corpuscular Hemoglobin 29.3 pg (27.0-33.0); Mean Corpuscular Volume 86.8 fL (80.0-98.0); Mean Platelet Volume 10.4 fL (9.4-12.4); Monocytes Absolute Auto 0.7 X10*3/uL (0.1-1.2); Monocytes Percent Auto 6.9 % (2-11); Neutrophils Absolute Auto 5.7 x10*3/uL (2.0-8.3); Neutrophils Percent Auto 60.5 % (45-73); Platelet Count 313 X10*3/uL (160-400); Red Blood Count 4.92 X10*6/uL (4.60-5.80); Red Cell Distribution Width 12.4 % (11.0-16.0); White Blood Count 9.4 X10*3/uL (4.8-10.8)
[2022-07-17 21:30] LABS: Alanine Aminotransferase 26 U/L (0-40); Albumin Level 4.5 g/dL (3.5-5.0); Alkaline Phosphatase 65 U/L (39-117); Anion Gap 12 (12-20); Aspartate Amino Transferase 17 U/L (5-37); Bilirubin Direct < 0.2 mg/dL (0.0-0.5); Bilirubin Total 0.3 mg/dL (0.0-1.0); Blood Urea Nitrogen 11 mg/dL (9-16); Calcium 9.4 mg/dL (8.4-10.2); Carbon Dioxide 27 mmol/L (22-29); Chloride 105 mmol/L (96-108); Estimated Glomerular Filt Rate > 60; Glucose Random 115 mg/dL (60-115); Magnesium 1.9 mg/dL (1.6-2.6); Potassium 3.8 mmol/L (3.3-5.1); Sodium 140 mmol/L (135-145)
[2022-07-17 21:37] LABS: Troponin-I High Sensitivity < 3.5 ng/L (<3.5-35.0)
[2022-07-17] MEDS: Aspirin Enteric Coated 325 MG TABLET.DR PO (21:43)
== END 2022-07-17 22:48 | disposition home or self-care (01) ==
PROVIDERS: Physician Assistant; Emergency Provider Emergency Medicine; PCP Internal Medicine
DX: R07.89 Other chest pain (principal); F17.210 Nicotine dependence, cigarettes, uncomplicated; F90.9 Attention-deficit hyperactivity disorder, unspecified type; Z20.822 Contact with and (suspected) exposure to COVID-19; Z20.828 Contact with and (suspected) exposure to other viral communicable diseases; Z79.899 Other long term (current) drug therapy; Z71.6 Tobacco abuse counseling
CPT/HCPCS: 36415; 71046; 80048; 80076; 83735; 84484; 85025; 87502; 87635; 93005; 99283; 99284

== ENCOUNTER 2022-07-25 14:13 | Outpatient (REF) | payer OTHER, SELFPAY | END 2022-07-25 14:14 | disposition home or self-care (01) | LOC: HO.HOSX 14:13 | PROVIDERS: Visit Provider Physician Assistant | DX: Z13.89 Encounter for screening for other disorder (principal) ==

== ENCOUNTER 2022-08-12 13:42 | Outpatient (REF) | payer OTHER, SELFPAY ==
--- NOTE | ~2022-08-12 | US_ITS ---
EXAMINATION: US ABDOMEN COMPLETE CLINICAL INFORMATION: Unspecified abdominal pain. COMPARISON: X-ray abdomen KUB 10/13/2017. TECHNIQUE: Real-time imaging of the abdominal viscera. FINDINGS: PANCREAS: Limited. The visualized pancreatic head and body are normal in appearance. The remainder of the pancreas is obscured from visualization by the overlying bowel gas. ABDOMINAL AORTA: The proximal, mid, and distal segments are normal in caliber. INFERIOR VENA CAVA: Visualized portions are normal. LIVER: The liver is borderline enlarged, with a longitudinal span of 17.0 cm. The liver contour is normal. There is diffuse increased liver parenchymal echogenicity. No focal hepatic lesion. There is no intrahepatic biliary duct dilatation seen. GALLBLADDER: The gallbladder is physiologically distended. Multiple mobile gallstones are present. No evidence of gallbladder wall thickening or pericholecystic fluid. COMMON BILE DUCT: Normal in caliber measuring 0.3 cm in diameter. RIGHT KIDNEY: Normal. No hydronephrosis. No renal calculi or focal parenchymal lesions. The kidney measures 11.0 cm in maximum dimension. LEFT KIDNEY: Normal. No hydronephrosis. No renal calculi or focal parenchymal lesions. The kidney measures 11.0 cm in maximum dimension. SPLEEN: No focal finding. The spleen measures 13.0 cm in maximum dimension. FREE FLUID: None. US/US abdomen complete IMPRESSION: 1. There is cholelithiasis, without cholecystitis or choledocholithiasis. 2. There is borderline hepatosplenomegaly. 3. There is generalized increase in hepatic echotexture, consistent with fatty infiltration or hepatocellular disease. Please correlate clinically. No focal hepatic mass or intrahepatic biliary dilatation is seen. 4. Technically limited ultrasound examination of the pancreatic tail.
[2022-08-12 13:55] LABS: MANUAL DIFF FLAG NO
[2022-08-12 14:40] LABS: Basophils Percent Auto 0.5 % (0-2); Eosinophils Absolute Auto 0.1 X10*3/uL (0.0-0.4); Eosinophils Percent Auto 1.7 % (0-4); Hematocrit 43.8 % (42.0-52.0); Hemoglobin 14.7 g/dl (14.0-18.0); Imm Gran Abs Auto 0.04 X10*3/uL (0.00-0.03); Imm Gran Pct Auto 0.5 % (0.0-0.4); Lymphocytes Absolute Auto 2.3 X10*3/uL (1.2-4.9); Lymphocytes Percent Auto 27.2 % (20-40); Mean Corpuscular HGB Conc 33.6 g/dl (31.0-36.0); Mean Corpuscular Hemoglobin 28.7 pg (27.0-33.0); Mean Corpuscular Volume 85.4 fL (80.0-98.0); Mean Platelet Volume 10.9 fL (9.4-12.4); Monocytes Absolute Auto 0.5 X10*3/uL (0.1-1.2); Monocytes Percent Auto 6.1 % (2-11); Neutrophils Absolute Auto 5.4 x10*3/uL (2.0-8.3); Platelet Count 286 X10*3/uL (160-400); Red Blood Count 5.13 X10*6/uL (4.60-5.80); Red Cell Distribution Width 11.8 % (11.0-16.0); White Blood Count 8.4 X10*3/uL (4.8-10.8)
[2022-08-12 14:48] LABS: Appearance Urine Clear; Color Urine Yellow; Glucose Urine UA Negative (Negative); Leukocyte Esterase Urine Negative (Negative); Nitrite Urine Negative (Negative); PH 5.5 (5.0-9.0); Specific Gravity - Urine 1.015 (1.005-1.025); Urine Blood Negative (Negative); Urine Ketones Negative (Negative); Urine Protein Negative (Neg-Trace)
[2022-08-12 15:16] LABS: Alanine Aminotransferase 21 U/L (0-40); Albumin Level 4.8 g/dL (3.5-5.0); Alkaline Phosphatase 70 U/L (39-117); Anion Gap 13 (12-20); Aspartate Amino Transferase 18 U/L (5-37); Bilirubin Total 0.5 mg/dL (0.0-1.0); Blood Urea Nitrogen 10 mg/dL (9-16); Calcium 9.8 mg/dL (8.4-10.2); Carbon Dioxide 25 mmol/L (22-29); Chloride 105 mmol/L (96-108); Cholesterol 179 mg/dL; Estimated Glomerular Filt Rate > 60; Glucose Fasting 83 mg/dL (60-99); Glucose Random 83 mg/dL (60-115); HDL Cholesterol 34 mg/dL; LDL Cholesterol Calculated 111 mg/dl; Potassium 4.4 mmol/L (3.3-5.1); Sodium 139 mmol/L (135-145); Total Protein 8.2 g/dL (6.5-8.0); Triglycerides 174 mg/dL
[2022-08-12 15:31] LABS: Thyroid Stimulating Hormone 2.57 uIU/mL (0.32-4.0)
== END 2022-08-12 13:43 | disposition home or self-care (01) ==
LOC: HO.LAB 13:42
PROVIDERS: PCP Internal Medicine; Visit Provider Internal Medicine
DX: R10.9 Unspecified abdominal pain (principal); E03.9 Hypothyroidism, unspecified; N28.9 Disorder of kidney and ureter, unspecified; N39.0 Urinary tract infection, site not specified; D64.9 Anemia, unspecified; E78.5 Hyperlipidemia, unspecified
CPT/HCPCS: 36415; 76700; 80048; 80053; 80061; 81003; 84443; 85025

== ENCOUNTER 2023-08-28 10:52 | Outpatient (AMB) | payer OTHER, SELFPAY ==
[2023-08-28 10:53] VITALS: BP 140/72; PULSE 75; O2SAT 98; BMI 29.3
--- NOTE | 2023-08-28 10:53 | MHC.PC.OV ---
Vital Signs 08/28/23 10:53 Height 6 ft 2 in Weight 228 lb BMI 29.3 BP 140/72 H Blood Pressure Location Lt brachial Position Sitting Pulse 75 Pulse Source Pulse Oximeter Pulse Oximetry (%) 98 Oxygen Delivery Method Room Air Intake Visit Reasons: Annual PE Foundry Manager Required: No Flare Maker: Not Required per policy Accompanied by: Self / Same As Patient Allergies shellfish derived Allergy (Severe, Verified 08/28/23 10:53) Hives haloperidol [From Haldol] Adverse Reaction (Verified 08/28/23 10:53) Anaphylaxis Medication List - Last Reconciled 08/28/23 by Vinh Durand MD clotrimazole-betamethasone 1-0.05 % 1 appl topical BID 2 weeks sildenafil 50 mg PO DAILY Tobacco use date assessed: 08/28/23 Dental Screening Dental Screen Date: 08/28/23 Did you have a dental visit in the last 12 months?: Yes Did you have a dental problem in the last 6 months where you did not have access to dental care?: No Was dental information given to patient?: Patient has dentist HPI Annual PE HPI Details No physical performed; has a pruritic rash on penis and groin; FH latex allergy and has been using latex condoms [facility] Medical History ADHD (attention deficit hyperactivity disorder) Gout attack Hyperesthesia Numbness of left lower extremity Obesity (BMI 30-39.9) Surgical History History of hand surgery Family History Father No problems noted. Mother No problems noted. Social History Housing: Apartment Alcohol intake: former Patient Tobacco Use Status: Current everyday Tobacco user Cigarettes Per Day: 3 e-Cigarette/Vaping Use: Never Used Second Hand Smoke Exposure: No service: No Current occupational status: employed Current occupation: Security Cognitive needs: No Hearing needs: No Vision needs: No Questionnaire PHQ-9 Over the last 2 weeks, how often have you been bothered by any of the following problems? 1. Little interest or pleasure in doing things: not at all 2. Feeling down, depressed, or hopeless: not at all 3. Trouble falling or staying asleep, or sleeping too much: not at all 4. Feeling tired or having little energy: not at all 5. Poor appetite or overeating: not at all 6. Feeling bad about yourself - or that you are a failure or have let yourself or your family down: not at all 7. Trouble concentrating on things, such as reading the newspaper or watching television: not at all 8. Moving or speaking so slowly that other people could have noticed. Or the opposite - being so fidgety or restless that you have been moving around a lot more than usual: not at all 9. Thoughts that you would be better off or of hurting yourself in some way: not at all Total score: 0 Depression Screening Interpretation: Negative Depression Screening Done: Yes 46650 - PHQ-9 Billing: Yes Source: Developed by Drs. Felipe Davila, Andreea Islas, Samson Wilburn and colleagues, with an educational yves from [employer]. Thrive Questionnaire Date Thrive assessed: 08/28/23 I am a: Patient What is your living situation today?: I have a steady place to live Within the past 12 months, did the food you bought not last and you didn't have the money to get more?: Never true Within the past 12 months, did you worry whether your food would run out before you got money to buy more?: Never true Do you have trouble paying for medicines?: No Do you have trouble getting transportation to medical appointments?: No Do you have trouble paying your heating and electricity bill?: No Do you have trouble taking care of your child, family member or friend?: No Do you have trouble with day-to-day activities such as bathing, preparing meals, shopping, managing finances, etc.?: No Are you currently unemployed and looking for a job?: No Are you interested in more education?: No Please select the resources that you would like help with: None THRIVE Score: 0 AUDIT C Alcohol Use Questionnaire (AUDIT-C) 1. How often do you have a drink containing alcohol?: Never Total Score: 0 Score Reviewed/Action Taken: Yes JERRY-7 AMB Questionnaire JERRY-7 Date JERRY - 7 assessed: 08/28/23 Feeling nervous, anxious, or on edge: 0 = Not at all Not being able to stop or control worryin = Not at all Worrying too much about different things: 0 = Not at all Trouble relaxin = Not at all Being so restless that it is hard to sit still: 0 = Not at all Becoming easily annoyed or irritable: 0 = Not at all Feeling afraid as if something awful might happen: 0 = Not at all Total JERRY-7 score (0-4 normal; 5-9 mild; 10-14 moderate; 15-21 severe): 0 Source: Developed by Drs. Felipe Davila, Andreea Islas, Samson Wilburn and colleagues, with an educational yves from [employer]. JERRY-7 Assessment Billing JERRY-7 Assessment Tool: JERRY-7 Assessment 71841 Review of Systems Const Denies chills, Denies headache(s) and Denies weight loss ENT Denies headache(s) Card Denies chest pain, Denies syncope, Denies irregular heart rhythm and Denies dyspnea Resp Denies chest congestion, Denies cough and Denies dyspnea GI Denies abdominal pain, Denies change in stool character, Denies nausea and Denies vomiting Musc Denies deformity and Denies joint swelling Neuro Denies syncope and Denies headache(s) Physical exam (Primary Care) Vital Signs: Last Vital Signs Pulse 75 08/28/23 10:53 BP 140/72 H 08/28/23 10:53 Pulse Ox 98 08/28/23 10:53 Oxygen Delivery Method Room Air 08/28/23 10:53 BMI result Body Mass Index 29.3 Tobacco/Smoking Status: Tobacco use Status Tobacco use date assessed 08/28/23 08/28/23 10:55 Patient Tobacco Use Status Current everyday Tobacco 08/28/23 10:55 e-Cigarette/Vaping Use Never Used 08/28/23 10:55 PHQ-9: PHQ-9 Score PHQ-9: Total score 0 08/28/23 10:55 Depression Screening Interpretation: Negative Thrive Assessment: Date of Thrive Assessment Date Thrive assessed 08/28/23 08/28/23 10:55 Const General: cooperative, comfortable, no acute distress and alert Neck Neck: Yes no lymphadenopathy Thyroid: Thyroid normal Resp Effort & Inspection: normal respiratory effort Auscultation: clear to auscultation bilaterally Percussion: percussion normal Cardio Jugular venous distension: no JVD Palpation: normal PMI Rate: regular rate Rhythm: regular rhythm Heart sounds: S1 normal heart sound present and S2 normal heart sound present GI Inspection: Yes normal to inspection Palpation (GI): No hepatosplenomegaly present Other: several excoriated lesions on shaft of penis and glans Skin General skin exam: no rashes or lesions noted Extrem General: Yes no clubbing, cyanosis or edema Assessment and Plan Assessment & Plan (1) Contact dermatitis: Code(s): L25.9 - Unspecified contact dermatitis, unspecified cause Plan: prob related to latex; std labs obtained and rx sent Orders: Orders Herpes Simplex Virus Ab IgG Today Z20.2 - Contact with and (suspected) exposure to infections with a predominantly sexual mode of transmission Syphilis Screen Today Z20.2 - Contact with and (suspected) exposure to infections with a predominantly sexual mode of transmission Hepatitis C Antibody Today Z20.2 - Contact with and (suspected) exposure to infections with a predominantly sexual mode of transmission HIV Ab/Ag Today Z20.2 - Contact with and (suspected) exposure to infections with a predominantly sexual mode of transmission Medications: New clotrimazole-betamethasone 1-0.05 % 1 appl topical BID 45 grams 0RF 2 weeks Coding Level of Care Code Est Pt Level 3 (12106) Diagnoses Contact dermatitis L25.9 Additional Codes JERRY-7 Assessment Billing - JERRY-7 Assessment Tool: JERRY-7 Assessment [id number] ([id number])
== END 2023-08-28 11:09 | disposition home or self-care (01) ==
PROVIDERS: PCP Internal Medicine; Visit Provider Internal Medicine
DX: L25.9 Unspecified contact dermatitis, unspecified cause (principal)
CPT/HCPCS: 99213

== ENCOUNTER 2023-09-03 16:12 | Outpatient (REF) | payer OTHER, SELFPAY ==
[2023-09-04 04:09] LABS: Syphilis Screen Nonreactive (Nonreactive)
[2023-09-04 04:35] LABS: HIV AB/AG Nonreactive (Nonreactive); HIV Num 1 0.05 S/CO (0.00-0.99); ~Hepatitis C Antibody Nonreactive (Nonreactive)
[2023-09-04 22:54] LABS: Herpes Simplex Type 1 IgG >58.00 index; Herpes Simplex Type 2 IgG <0.90 index
== END 2023-09-03 16:13 | disposition home or self-care (01) ==
LOC: HO.LAB 16:12
PROVIDERS: PCP Internal Medicine; Visit Provider Internal Medicine
DX: Z20.2 Contact with and (suspected) exposure to infections with a predominantly sexual mode of transmission (principal)
CPT/HCPCS: 36415; 86695; 86696; 86780; 86803; 87389

== ENCOUNTER 2023-10-18 15:29 | Emergency (ER) | payer OTHER, SELFPAY ==
[2023-10-18 17:14] VITALS: BP 145/77; PULSE 86; RESP 16; TEMP 36.7; O2SAT 99; BMI 35.2
[2023-10-18 19:21] VITALS: BP 149/63; PULSE 93; RESP 16; TEMP 36.8; O2SAT 97
--- NOTE | 2023-10-18 19:23 | MHC.EDTECH ---
This pct just assumed care of Patient ,vitals taken ,pt waiting to see Provider .
--- NOTE | 2023-10-18 21:14 | ED.GENADULT ---
HPI - General Adult General Chief complaint: General Medical Stated complaint: lump back Time Seen by Provider: 10/18/23 20:58 Source: patient and family Mode of arrival: ambulatory Limitations: no limitations History of Present Illness HPI narrative: 32 yo male with PMH of ADHD, gout, obesity here with on and off lower abdominal pain and feels there is a lump has constipation was told by urgent care to take OTC medications. He has no fevers, n/v/d and just wanted second opinion. no weight loss MD complaint: lump on abdomen Onset (ago): week(s) Location: abdomen Radiation: non-radiation Severity: mild Quality: other (irritating) Pain Consistency: intermittent Relieving factors: none Exacerbating factors: other (constipation) Associated symptoms: denies other symptoms Treatments prior to arrival: none Related Data Previous Rx's ?Medication ?Instructions ?Recorded sildenafil 50 mg tablet 50 mg PO DAILY #30 tabs 04/17/23 clotrimazole-betamethasone 1 1 appl topical BID 2 weeks #45 08/28/23 %-0.05 % topical cream grams Allergies Allergy/AdvReac Type Severity Reaction Status Date / Time shellfish derived Allergy Severe Hives Verified 10/18/23 17:16 haloperidol [From Haldol] AdvReac Anaphylaxis Verified 10/18/23 17:16 Review of Systems Review of Systems: Constitutional : No Weight loss, No Fever, No Chills ENT/Mouth : No sore throat, No Rhinorrhea Eyes: No Swelling, No Redness Cardiovascular : No Chest Pain, No SOB, NoEdema Respiratory : No Cough, No Sputum, No Wheezing Gastrointestinal : no Nausea, no Vomiting, no Diarrhea, positive abdominal Pain, No Hematochezia, No Melena, pos constipation Genitourinary : No Dysuria, No Urinary Frequency, No Hematuria, No Urgency Musculoskeletal : No joint pain, No Myalgias, No Joint Swelling Skin : No Skin Lesions, No rash Neuro : No Weakness, No Numbness, No Dizziness, No Headache All other systems reviewed and are negative. [facility] Past Medical History Attestation statement: The following information was validated with the patient. Source: old records reviewed Medical History Gout attack Obesity (BMI 30-39.9) ADHD (attention deficit hyperactivity disorder) Hyperesthesia Numbness of left lower extremity Surgical History History of hand surgery Family History Family History Father No problems noted. Mother No problems noted. Social History Social History Housing: Apartment Alcohol intake: former Patient Tobacco Use Status: Current everyday Tobacco user Cigarettes Per Day: 3 e-Cigarette/Vaping Use: Never Used Second Hand Smoke Exposure: No Advance Directives: No Advance Directives Information Provided: No service: No Current occupational status: employed Current occupation: Security Cognitive needs: No Hearing needs: No Vision needs: No Physical Exam ED Vital Signs: Vital Signs - 24 hr 10/18/23 17:14 10/18/23 19:21 Temperature 98.1 F 98.3 F Pulse Rate 86 93 Respiratory Rate 16 16 Blood Pressure 145/77 H 149/63 H Pulse Oximetry 99 97 Oxygen Delivery Method Room Air Room Air BMI result Body Mass Index 35.2 Appearance: Alert. Oriented X3. No acute distress. Eyes: Pupils equal, round and reactive to light. ENT: Pharynx normal. Neck: Normal inspection. Neck supple. CVS: Normal heart rate and rhythm. Pulses normal. Respiratory: No respiratory distress. Breath sounds normal. Abdomen: Soft and nontender. no mass or hernia felt Skin: Skin warm and dry. Normal skin color. Normal skin turgor. Extremities: No lower extremity edema. No calf ttp Neuro: Oriented X 3. No motor deficit. No sensory deficit. Medical Decision Making Medical Decision Making MDM Narrative: 32 yo male with ADHD, obesity here with c/o feeling lump and constipation on L side has no pain to palpation no red flag symptoms I feel no mass or hernia on exam I did offer CT scan but he wants to follow up with his PCP at this time will take OTC constipation meds and DC home Differential Diagnosis Differential Diagnoses: The differential diagnosis associated with the presentation includes constipation, MSK strain, lipoma, hernia Independent Historian Clinical information obtained from an independent historian. History obtained from or confirmed by: Spouse External Record Review External record reviewed: Inpatient record Tests considered The following testing was considered but not selected: CT scan he declined Discharge Plan Discharge Clinical Impression: Abdominal pain Qualifiers: Abdominal location: lower abdomen, unspecified Qualified Code(s): R10.30 - Lower abdominal pain, unspecified Constipation Qualifiers: Constipation type: unspecified constipation type Qualified Code(s): K59.00 - Constipation, unspecified Patient Disposition: Home, Self-Care Instructions: Abdominal Pain (ED), Constipation (ED) Additional Instructions: ask your doctor for outpatient CT scan you should have this looked at given the chronic nature of complaint take the miralax and dulcolax return for worsening symptoms, fevers, vomiting, or any other concern. Prescriptions: No Action sildenafil 50 mg tablet 50 mg PO DAILY Qty: 30 5RF clotrimazole-betamethasone 1-0.05 % cream 1 appl topical BID 14 Days Qty: 45 0RF Print Language: Lao
[2023-10-18 21:25] VITALS: BP 136/69; PULSE 67; RESP 16; TEMP 36.8; O2SAT 97
--- NOTE | 2023-10-18 21:26 | MHC.EDTECH ---
VITALS TAKEN ,PATIENT HAD A HAM SANDWICH AND DEBORAH KAMERON FOR SNACK .
[2023-10-18 21:57] VITALS: BP 136/69; PULSE 67; RESP 16; TEMP 36.8; O2SAT 97
== END 2023-10-18 21:57 | disposition home or self-care (01) ==
PROVIDERS: Emergency Provider Emergency Medicine; PCP Internal Medicine
DX: R10.30 Lower abdominal pain, unspecified (principal); K59.00 Constipation, unspecified
CPT/HCPCS: 99283; 99284

== ENCOUNTER 2024-08-31 08:59 | Outpatient (AMB) | payer OTHER, SELFPAY ==
--- NOTE | 2024-08-31 09:03 | MHC.PC.OV ---
Vital Signs 08/31/24 09:04 Height 5 ft 10 in Weight 232 lb BMI 33.3 BP 120/70 Blood Pressure Location Lt brachial Position Sitting Pulse 67 Pulse Source Pulse Oximeter Temp 97.3 F Temp Source Temporal Artery Scan Pulse Oximetry (%) 98 Oxygen Delivery Method Room Air Intake Visit Reasons: Annual PE - see comments Intake Note: Patient is here today for a physical. Paleontology Teacher Required: No Charge Lpn: Not Required per policy Accompanied by: Self / Same As Patient Allergies shellfish derived Allergy (Severe, Verified 08/31/24 09:04) Hives haloperidol [From Haldol] Adverse Reaction (Verified 08/31/24 09:04) Anaphylaxis Medication List - Last Reconciled 08/31/24 by Vinh Durand MD clotrimazole-betamethasone 1-0.05 % 1 appl topical BID 2 weeks sildenafil 50 mg PO DAILY Tobacco use date assessed: 08/31/24 Dental Screening Dental Screen Date: 08/31/24 Did you have a dental visit in the last 12 months?: Yes Did you have a dental problem in the last 6 months where you did not have access to dental care?: No Was dental information given to patient?: Patient has dentist HPI Annual PE - see comments HPI Details healthy [facility] Medical History Gout attack Obesity (BMI 30-39.9) ADHD (attention deficit hyperactivity disorder) Hyperesthesia Numbness of left lower extremity Surgical History History of hand surgery Family History Father No problems noted. Mother No problems noted. Social History (Updated 08/31/24 @ 09:08 by LATHA Yu) Housing: Apartment Alcohol intake: current Alcohol intake frequency: a few times a week Patient Tobacco Use Status: Former Tobacco user Tobacco use type: Cigarette Cigarettes Per Day: 3 e-Cigarette/Vaping Use: Never Used Second Hand Smoke Exposure: Yes service: No Current occupational status: employed Current occupation: Security Cognitive needs: No Hearing needs: No Vision needs: No Questionnaire PHQ-9 Over the last 2 weeks, how often have you been bothered by any of the following problems? 1. Little interest or pleasure in doing things: not at all 2. Feeling down, depressed, or hopeless: not at all 3. Trouble falling or staying asleep, or sleeping too much: not at all 4. Feeling tired or having little energy: not at all 5. Poor appetite or overeating: not at all 6. Feeling bad about yourself - or that you are a failure or have let yourself or your family down: not at all 7. Trouble concentrating on things, such as reading the newspaper or watching television: not at all 8. Moving or speaking so slowly that other people could have noticed. Or the opposite - being so fidgety or restless that you have been moving around a lot more than usual: not at all 9. Thoughts that you would be better off or of hurting yourself in some way: not at all Total score: 0 Depression Screening Interpretation: Negative Depression Screening Done: Yes Source: Developed by Drs. Felipe Davila, Andreea Islas, Samson Wilburn and colleagues, with an educational yves from [employer]. Thrive Questionnaire Date Thrive assessed: 08/31/24 I am a: Patient What is your living situation today?: I have a steady place to live Within the past 12 months, did the food you bought not last and you didn't have the money to get more?: Never true Within the past 12 months, did you worry whether your food would run out before you got money to buy more?: Never true Do you have trouble paying for medicines?: Yes Do you have trouble getting transportation to medical appointments?: No Do you have trouble paying your heating and electricity bill?: Yes Do you have trouble taking care of your child, family member or friend?: No Do you have trouble with day-to-day activities such as bathing, preparing meals, shopping, managing finances, etc.?: No Are you currently unemployed and looking for a job?: No Are you interested in more education?: Yes Please select the resources that you would like help with: Housing/Penitentiary, Utilities and Education Currently or been in a relationship where the following occur: No concerns reported THRIVE Score: 1 AUDIT C Alcohol Use Questionnaire (AUDIT-C) 1. How often do you have a drink containing alcohol?: Never Total Score: 0 JERRY-7 AMB Questionnaire JERRY-7 Date JERRY - 7 assessed: 08/31/24 Feeling nervous, anxious, or on edge: 0 = Not at all Not being able to stop or control worryin = Not at all Worrying too much about different things: 1 = Several days Trouble relaxin = Not at all Being so restless that it is hard to sit still: 0 = Not at all Becoming easily annoyed or irritable: 1 = Several days Feeling afraid as if something awful might happen: 0 = Not at all Total JERRY-7 score (0-4 normal; 5-9 mild; 10-14 moderate; 15-21 severe): 2 Source: Developed by Drs. Felipe Davila, Andreea Islas, Samson Wilburn and colleagues, with an educational yves from [employer]. Review of Systems Const Denies chills, Denies fatigue, Denies headache(s) and Denies weight loss Eyes Denies change in vision, Denies diplopia and Denies eye pain ENT Denies vertigo, Denies dizziness, Denies headache(s) and Denies nasal discharge Card Denies chest pain, Denies rapid heart rate and Denies dyspnea on exertion Resp Denies chest congestion, Denies cough, Denies pain with cough and Denies dyspnea on exertion GI Denies abdominal pain, Denies hematochezia and Denies change in bowel habits Musc Denies myalgias, Denies arthralgias and Denies joint swelling Skin/Breast Denies lesions and Denies unusual bruising Neuro Denies vertigo, Denies dizziness, Denies headache(s) and Denies focal weakness Endo Denies fatigue Physical exam (Primary Care) Vital Signs: Last Vital Signs Temp 97.3 F 08/31/24 09:04 Pulse 67 08/31/24 09:04 BP 120/70 08/31/24 09:04 Pulse Ox 98 08/31/24 09:04 Oxygen Delivery Method Room Air 08/31/24 09:04 BMI result Body Mass Index 33.3 Tobacco/Smoking Status: Tobacco use Status Tobacco use date assessed 08/31/24 08/31/24 09:09 Patient Tobacco Use Status Former Tobacco user 08/31/24 09:09 Tobacco use type Cigarette 08/31/24 09:09 e-Cigarette/Vaping Use Never Used 08/31/24 09:09 PHQ-9: PHQ-9 Score PHQ-9: Total score 0 08/31/24 09:09 Depression Screening Interpretation: Negative Thrive Assessment: Date of Thrive Assessment Date Thrive assessed 08/31/24 08/31/24 09:09 Currently or been in a relationship where the following occur: No concerns reported Const General: cooperative, healthy appearing and no acute distress Orientation/consciousness: oriented to person, oriented to place and oriented to time HENMT Head: Yes normal to inspection, Yes normocephalic and Yes atraumatic Mouth: Normal oral and palatal mucosa present and tongue normal Throat: Yes posterior oropharynx normal and Yes uvula midline Eyes General: appearance normal, both eyes and all related structures Neck Neck: Yes normal visual inspection, Yes full ROM and Yes no lymphadenopathy Thyroid: Thyroid normal Carotids: normal carotid upstroke Chest Chest palpation & inspection: normal inspection of the chest Resp Effort & Inspection: normal respiratory effort and able to speak in complete sentences Auscultation: clear to auscultation bilaterally Cardio Jugular venous distension: no JVD Palpation: normal PMI Rate: regular rate Rhythm: regular rhythm Heart sounds: S1 normal heart sound present and S2 normal heart sound present GI Inspection: Yes normal to inspection Palpation (GI): Soft to palpation and No hepatosplenomegaly present Auscultation: normal bowel sounds General: Yes no CVA tenderness Back/Spine/Pelvis Back: no CVA tenderness Skin General skin exam: no rashes or lesions noted Neuro General: oriented to person, oriented to place and oriented to time Extrem General: Yes normal to inspection and Yes full ROM Coding Level of Care Code Est Pt Prev Care 18-39y(80553) Diagnoses Physical exam Z00.00 Assessment & Plan Assessment & Plan (1) Physical exam: Code(s): Z00.00 - Encounter for general adult medical examination without abnormal findings Category: Medical Plan: stable; do labs Orders: Orders Complete Blood Count Auto Diff Today Z13.0 - Encounter for screening for diseases of the blood and blood-forming organs and certain disorders involving the immune mechanism Lipid Panel Today Z13.220 - Encounter for screening for lipoid disorders Comprehensive [place]. Panel Fast Today Z13.9 - Encounter for screening, unspecified
[2024-08-31 09:04] VITALS: BP 120/70; PULSE 67; TEMP 36.3; O2SAT 98; BMI 33.3
--- OUTSIDE RECORDS SUMMARY | 2024-08-31 09:45 | XMS_ITS | Clinical Summary ---
Author Organization [facility] Address [address] [place] [address] Care Team Providers Care Toppiece Cutter Name Role Phone Vinh Durand MD Primary Care Provider [phone] Social History Tobacco Use Types Packs/Day Years Used Date Smoking Tobacco: Never Smokeless Tobacco: Never Alcohol Use Standard Drinks/Week Comments Never 0 (1 standard drink = 0.6 oz pur e alcohol) Sex and Gender Information Value Date Recorded Sex Assigned at Not on file Legal Sex Male 11:04 PM EST Gender Identity Not on file Sexual Orientation Not on file Obstetrics History Last Filed Vital Signs Vital Sign Reading Time Taken Comments Blood Pressure 130/70 10/20/2023 1:57 PM EDT Pulse 79 10/20/2023 1:57 PM EDT Temperature - - Respiratory Rate - - Oxygen Saturation - - Inhaled Oxygen Concentration - - Weight 98.9 kg (218 lb) 02/18/2024 1:05 PM EDT Height 188 cm (6' 2 ) 02/18/2024 1:05 PM EDT Body Mass Index 27.99 02/18/2024 1:05 PM EDT Plan of Treatment Health Maintenance Due Date Last Done Comments DTaP,Tdap,and Td Vaccines (1 - Tdap) 11/16/2010 Hepatitis B Vaccines (1 of 3 - 19+ 3-dose series) 11/16/2010 Depression Screening 06/09/2022 HIV Screening 06/09/2022 Hepatitis C Screening 06/09/2022 Social Influencers of Health Screening 06/09/2022 COVID-19 Vaccine ( - 2023-2 5 season) 2024 Influenza Vaccine (#1) 2024 HIB Vaccines Aged Out No longer eligi ble based on patient's age to complete this topic HPV Vaccines Aged Out No longer eligi ble based on patient's age to complete this topic Hepatitis A Vaccines Aged Out No long er eligible based on patient's age to complete this topic IPV Vaccines Aged Out No longer eligi ble based on patient's age to complete this topic MMR Vaccines Aged Out No longer eligi ble based on patient's age to complete this topic Meningococcal ACWY Vaccine Aged Out N o longer eligible based on patient's age to complete this topic Meningococcal B Vacine Aged Out No lo nger eligible based on patient's age to complete this topic Pneumococcal Vaccine: Pediat rics (0 to 5 Years) and At-Risk Patients (6 to 64 Years) Aged Out No longer eligible b ased on patient's age to complete this topic RSV Immunization Patients Un dwayne 20 months Aged Out No longer eligible b ased on patient's age to complete this topic Varicella Vaccines Aged Out No longer eligible based on patient's age to complete this topic Care Teams Toppiece Cutter Relationship Specialty Start Date End Date Vinh Durand MD [address] [place] [address] Drive [address] [place] [address] PCP - General 10/14/22
== END 2024-08-31 09:24 | disposition home or self-care (01) ==
PROVIDERS: PCP Internal Medicine; Visit Provider Internal Medicine
DX: Z00.00 Encounter for general adult medical examination without abnormal findings (principal)

== ENCOUNTER → 2024-08-31 08:59 | Outpatient (BNVA) | payer OTHER, SELFPAY | PROVIDERS: PCP Internal Medicine; Visit Provider Internal Medicine | DX: Z00.00 Encounter for general adult medical examination without abnormal findings (principal) | CPT/HCPCS: 99395 ==